=== PATIENT | male | born 1940 | race Hispanic/Latino ===

== ENCOUNTER 2018-08-22 17:10 | Emergency (ER) | payer MEDICARE ==
[2018-08-22 17:27] LABS: BASOPHILS % (AUTO) 1.1 % (0.0-5.0); EOSINOPHILS % (AUTO) 1.2 % (0.0-8.0); LYMPHOCYTES % (AUTO) 12.2 % (21.0-51.0); MEAN CORPUSCULAR HEMOGLOBIN 28.8 pg (27.0-33.0); MEAN CORPUSCULAR HGB CONC 34.1 g/dL (32.0-36.0); MEAN CORPUSCULAR VOLUME 84.6 fL (79-99); MONOCYTES % (AUTO) 5.6 % (3.0-13.0); NEUTROPHILS % (AUTO) 79.9 % (40.0-77.0); NUCLEATED RED BLOOD CELLS 0.2 % (0.0-0.19); PLATELET COUNT (AUTO) 201 K/uL (130-400); RED BLOOD CELL COUNT(AUTO) 4.25 MIL/uL (4.50-6.20); RED CELL DISTRIBUTION WIDTH 14.1 % (11.0-15.5); WHITE BLOOD COUNT (AUTO) 9.7 K/uL (4.8-10.8)
[2018-08-22 17:37] LABS: CREATININE 1.6 mg/dL (0.5-1.5); POTASSIUM 4.4 mmol/L (3.5-5.1)
[2018-08-22 17:42] LABS: ALBUMIN 2.7 g/dL (3.5-5.0); BILIRUBIN,TOTAL 0.5 mg/dL (0.2-1.0); TOTAL PROTEIN, SERUM 7.3 g/dL (6.0-8.3)
[2018-08-22 17:53] LABS: CREATINE KINASE, TOTAL 194 U/L (21-232); MYOGLOBIN 52 ng/mL (10-92); TROPONIN I < 0.04 ng/mL (0.00-0.06)
[2018-08-22] MEDS ORDERED: TRAMADOL HCL 50 MG TABLET ONE (19:43)
== END 2018-08-22 22:50 | disposition home or self-care (01) ==
LOC: EDH 17:10
DX: R91.8 Other nonspecific abnormal finding of lung field (principal); R59.1 Generalized enlarged lymph nodes; E78.5 Hyperlipidemia, unspecified; I10 Essential (primary) hypertension; F32.9 Major depressive disorder, single episode, unspecified; Z98.890 Other specified postprocedural states; Z87.891 Personal history of nicotine dependence
CPT/HCPCS: 36415; 71045; 71250; 74176; 80053; 82550; 83874; 83880; 84484; 85025; 93005